=== PATIENT | female | born 1980 | race Hispanic/Latino ===

== ENCOUNTER → 2025-04-22 | Outpatient (CLI) | payer MEDICAID ==
[~2025-04-22] MED LIST: PANT40TA PO
--- NOTE | 2025-04-24 23:24 | HMCIMG ---
EXAM: Nuclear Medicine Gastric Emptying Scan. INDICATION: Abdominal pain, nausea, vomiting. REFERENCE EXAMINATION: None. TECHNIQUE: 1.5 mCi of Tc99m sulfur colloid with 02 scrambled eggs. FINDINGS: Transit of radiopharmaceutical is seen from the stomach into the small bowel. 50% gastric emptying not achieved during the period of study. IMPRESSION: Scintigraphic findings suggest gastroparesis. /[place]
== END | disposition home or self-care (01) ==
LOC: RAH 13:50
PROVIDERS: ATTEND Internal Medicine Gastroenterology
DX: R11.0 Nausea (principal)
CPT/HCPCS: 78264; A9541

== ENCOUNTER 2025-04-25 13:22 | Emergency (ER) | payer MEDICAID ==
[~2025-04-25] VITALS: Ht 154.9 cm; Wt 81.2 kg
--- NOTE | 2025-04-25 13:32 | ERN ---
ED Note History of Present Illness Stated Complaint: UPPER ABD PAIN Chief Complaint: Abdominal Pain Time Seen by MD: 13:27 Dictation: PATIENT IS A 44-YEAR-OLD FEMALE COMING IN TODAY WITH A EPIGASTRIC PAIN SHE HAS HAD FOR MORE THAN A MONTH WITH THE ABDOMINAL BLOATING. SHE STATES HE HAS HAD NAUSEA WITHOUT VOMITING. SHE STATES SHE HAS RECENTLY HAD A GASTRIC EMPTYING STUDY BY NUCLEAR MEDICINE ON 04/22 IN HIS PENDING THE RESULTS. THIS THIS WAS SCHEDULED BY [facility]. SHE IS A PATIENT OF DR. VIKA OLIVAREZ. SHE STATES SHE HAD A HAD AN ENDOSCOPY THREE WEEKS AGO BY DR. OLIVAREZ IN HIS PENDING RESULTS OF THAT. STATES SHE HAS HAD MULTIPLE ENDOSCOPIES IN THE PAST DUE TO EPIGASTRIC PAIN NAUSEA Allergies: Coded Allergies: No Known Allergies (Unverified Allergy, Unknown, 04/25/25) Past Medical History Past Medical History: Fibromyalgia, GERD Additional Past Medical Hx: GASTRITIS, ESOPHAGEAL PROBLEMS Surgical History: Cholecystectomy, LMP: Mar 30, 2023 RN Note Reviewed/Agreed w/PFSH: Yes Review of System Dictation CONSTITUTIONAL: NEGATIVE EXCEPT FOR HPI HEAD/FACE: NEGATIVE EXCEPT FOR HPI EENT: NEGATIVE EXCEPT FOR HPI RESPIRATORY: NEGATIVE EXCEPT FOR HPI GASTROINTESTINAL/ABDOMINAL: NEGATIVE EXCEPT FOR HPI CHRONIC EPIGASTRIC PAIN WITH NAUSEA/BLOATING GENITOURINARY: NEGATIVE EXCEPT FOR HPI MUSCULOSKELETAL: NEGATIVE EXCEPT FOR HPI INTEGUMENTARY: NEGATIVE EXCEPT FOR HPI NEUROLOGICAL/PSYCH: NEGATIVE EXCEPT FOR HPI HEMATOLOGIC/LYMPHATIC: NEGATIVE EXCEPT FOR HPI ALL SYSTEMS NEGATIVE, EXCEPT NOTED ABOVE. 13 POINT REVIEW OF SYSTEMS ASSESSED AND ALL NEGATIVE EXCEPT FOR ABOVE. Initial Vital Sign VS Vital Signs Date Time Temp Pulse Resp B/P (MAP) Pulse Ox O2 Delivery O2 Flow Rate FiO2 04/25/25 13:23 98.4 90 16 158/90 99 Room Air 0 04/25/25 16:13 21 Physical Exam Dictation VITAL SIGNS REVIEWED GENERAL APPEARANCE: ALERT, ORIENTED X 3, MODERATE ACUTE DISTRESS, WELL DEVELOPED, NOURISHED. OBESE HEAD AND FACE: NON-TRAUMATIC. EYES: PERRL, PINK CONJUNCTIVAS, EYELID NO TRAUMA, ANTERIOR CHAMBER WITH ARCUS SENILIS. EARS: PINNAS INTACT AND NO SIGNS OF TRAUMA OR ERYTHEMA EAR CANALS CLEAR AND NO DISCHARGE TM NO ERYTHEMA NOSE: NO DISCHARGE, NO BLEEDING. OROPHARYNX: MOUTH NORMAL, TONGUE PINK, PHARYNX CLEAR,NO ERYTHEMA, TONSILS NO EXUDATES, NO ABSCESSES NOTED, MUCOUS MEMBRANE MOIST NECK: SUPPLE, NON-TENDER, NO THYROMEGALY, NO MASSES, NO JVD, NO BRUITS BREAST:DEFERRED CHEST:NO TENDERNESS, NO CREPITUS, NO PARADOXICAL MOVEMENT, NO RETRACTIONS LUNGS:CLEAR, WELL-VENTILATED, SYMMETRIC, NO RALES, NO WHEEZING, NO RHONCHI, NO STRIDOR, GOOD BREATH SOUNDS BILATERALLY HEART: REGULAR RATE, REGULAR RHYTHM, NO MURMUR, NO GALLOPS VASCULAR: NO PERIPHERAL EDEMA, ABDOMEN: SOFT, POSITIVE BOWEL SOUNDS, NONDISTENDED, NO GUARDING, MILD EPIGASTRIC TENDERNESS WITH PALPATION NO REBOUND, NO MASSES NO HEPATOMEGALY, NO SPLENOMEGALY, NO BARRIOS'S SIGN, NO HERNIAS. RECTAL: DEFERRED GENITAL: DEFERRED NEUROLOGICAL: NORMAL SPEECH, MOTOR FUNCTION INTACT, SENSORY FUNCTION INTACT MUSCULOSKELETAL: NECK NONTENDER, FULL RANGE OF MOTION, BACK NONTENDER, FULL RANGE OF MOTION, EXTREMITIES: NONTENDER, FULL RANGE OF MOTION SKIN: COLOR PINK, DRY, NO TURGOR, NO RASH, NO LACERATIONS, NO ABRASIONS, NO CONTUSIONS. LYMPHATIC: DEFERRED Results (Laboratory/Radiology) Laboratory/Radiology Laboratory Tests Test 04/25/25 13:36 04/25/25 14:45 White Blood Count 8.2 K/uL (4.8-10.8) Red Blood Count 4.82 MIL/uL (4.00-5.50) Hemoglobin 14.4 g/dL (12.0-16.0) Hematocrit 42.2 % (36-48) Mean Corpuscular Volume 87.6 fL (79-99) Mean Corpuscular Hemoglobin 29.9 pg (27.0-33.0) Mean Corpuscular Hemoglobin Concent 34.1 g/dL (32.0-36.0) Red Cell Distribution Width 11.9 % (11.0-15.5) Platelet Count 300 K/uL (130-400) Mean Platelet Volume 8.9 fL (7.5-10.5) Immature Granulocyte % (Auto) 0.1 % (0-1) Neutrophils (%) (Auto) 60.4 % (40.0-77.0) Lymphocytes (%) (Auto) 31.1 % (21.0-51.0) Monocytes (%) (Auto) 6.7 % (3.0-13.0) Eosinophils (%) (Auto) 1.2 % (0.0-8.0) Basophils (%) (Auto) 0.5 % (0.0-5.0) Neutrophils # (Auto) 5.0 K/uL (1.8-7.7) Lymphocytes # (Auto) 2.6 K/uL (1.0-4.8) Monocytes # (Auto) 0.6 K/uL (0.1-1.0) Eosinophils # (Auto) 0.10 K/uL (0.00-0.70) Basophils # (Auto) 0.04 K/uL (0.00-0.20) Absolute Immature Granulocyte (auto 0.01 K/uL (0-1) Nucleated Red Blood Cells 0.0 % (0.0-0.19) Sodium Level 136 mmol/L (136-145) Potassium Level 3.9 mmol/L (3.5-5.1) Chloride Level 101 mmol/L (101-111) Carbon Dioxide Level 32 mmol/L (21-32) Blood Urea Nitrogen 14 mg/dL (7-18) Creatinine 0.7 mg/dL (0.5-1.0) Glomerular Filtration Rate Calc 110 mL/min (>90) Random Glucose 99 mg/dL (70-105) Total Calcium 9.0 mg/dL (8.5-10.1) Lipase 31 U/L (16-77) Urine Color YELLOW (YELLOW) Urine Appearance CLOUDY (CLEAR) H Urine pH 5.5 (5.0-8.0) Urine Specific [place] 1.027 (1.001-1.031) Urine Protein NEGATIVE mg/dL (NEGATIVE) Urine Glucose (UA) NEGATIVE mg/dL (NEGATIVE) Urine Ketones NEGATIVE mg/dL (NEGATIVE) Urine Occult Blood NEGATIVE (NEGATIVE) Urine Nitrate NEGATIVE (NEGATIVE) Urine Bilirubin NEGATIVE mg/dL (NEGATIVE) Urine Urobilinogen 0.2 mg/dL (0.2-1.0) Urine Leukocyte Esterase NEGATIVE Akbar/uL Urine RBC 2-5 /HPF (0-1) H Urine WBC 2-5 /HPF (0-1) H Urine Squamous Epithelial Cells FEW /HPF (0-2) Urine Bacteria RARE /HPF (None Seen) Urine HCG, Qualitative NEGATIVE (NEGATIVE) 1735/ CLINICAL HISTORY: PERIUMBILICAL AND LEFT LOWER QUADRANT PAIN TENDERNESS TECHNIQUE: Axial computed tomography images of the abdomen and pelvis with intravenous contrast. CT scan performed according to ALARA. Automated exposure control used during exam. CONTRAST: with intravenous contrast. COMPARISON: None provided. FINDINGS: Lung bases are clear. Hepatomegaly and hepatic steatosis. The gallbladder is surgically absent. No abnormality appreciated within either adrenal gland, either kidney, spleen, or pancreas. Bowel loops are normal in caliber without evidence of obstruction, ileus, or obvious bowel wall thickening. Abundant colonic fecal matter may reflect a component of mild constipation. The appendix is normal. No abnormality within the unopacified bladder. IUD present within the uterus. There is no ascites or lymphadenopathy. Opacified abdominal pelvic vessels are patent. The visualized thoracic aorta is distended with fluid with abrupt narrowing at the gastroesophageal junction. Findings may reflect achalasia, recommend an esophagram or direct visualization (EGD) for further evaluation. IMPRESSION: 1. No acute intraabdominal or pelvic pathology. 2. Distended thoracic aorta with abrupt narrowing at the gastroesophageal junction, possibly reflecting achalasia. Recommend an esophagram or direct visualization (EGD) for further evaluation. /[place] Labs Reviewed?: Yes ED Course ED Course Orders Procedure Category Date Status Time Cbc With Differential LAB 04/25/25 Complete 13:28 ,Urine Test LAB 04/25/25 Complete 13:28 Urinalysis Profile LAB 04/25/25 Complete 13:28 0.9%Nacl 1000ml (Ns PHA 04/25/25 Complete 1000ml) 13:30 Morphine 2mg Syg PHA 04/25/25 Complete (Morphine 2mg Syg) 13:30 Ondansetron 4mg Inj PHA 04/25/25 Complete (Zofran 4mg Inj) 13:30 Famotidine 20mg Vial PHA 04/25/25 Complete (Pepcid 20mg Vial) 13:30 Lipase LAB 04/25/25 Complete 13:28 Basic Metabolic Panel LAB 04/25/25 Complete 13:28 Ct Abdomen/Pelvis CT 04/25/25 Resulted W/Contrast 17:03 Lidocaine Hcl 2% PHA 04/25/25 Complete Viscous (Lidocaine Hcl 18:00 Mag/Alum/Simeth 30ml PHA 04/25/25 Complete (Maalox Plus 30ml) 18:00 Dicyclomine Hcl PHA 04/25/25 Complete (Bentyl 10mg/5ml 18:00 Iohexol (Omnipaque) PHA 04/25/25 Complete 17:50 Current Medications Medications (Trade) Dose Ordered Sig/Annita Route PRN Reason Start Time Stop Time Status Last Admin Dose Admin Al Hydroxide/Mg Hydroxide (MAALox PLUS 30ML) 30 ml ONCE ONCE PO 04/25/25 18:00 04/25/25 18:01 DC 04/25/25 18:14 Dicyclomine HCl (Bentyl 10mg/5ml Syrup) 10 mg ONCE ONCE PO 04/25/25 18:00 04/25/25 18:01 DC 04/25/25 18:14 Famotidine (Pepcid 20mg Vial) 20 mg ONCE ONCE IV 04/25/25 13:30 04/25/25 13:31 DC 04/25/25 15:12 Iohexol (Omnipaque) 75 ml STK-MED ONCE IV 04/25/25 17:50 04/25/25 17:50 DC Lidocaine HCl (Lidocaine HCl 2% Viscous) 10 ml ONCE ONCE PO 04/25/25 18:00 04/25/25 18:01 DC 04/25/25 18:14 Morphine Sulfate (morPHINE 2MG SYG) 2 mg ONCE ONCE IVP 04/25/25 13:30 04/25/25 13:31 DC 04/25/25 15:12 Ondansetron HCl (zoFRAN 4MG INJ) 4 mg ONCE ONCE IVP 04/25/25 13:30 04/25/25 13:31 DC 04/25/25 15:12 Sodium Chloride 1,000 ml @ 0 mls/hr ONCE ONCE IV 04/25/25 13:30 04/25/25 13:31 DC 04/25/25 15:12 Vital Signs Date Time Temp Pulse Resp B/P (MAP) Pulse Ox O2 Delivery O2 Flow Rate FiO2 04/25/25 18:33 65 18 164/91 98 Room Air* 0 21 04/25/25 16:13 66 15 148/86 96 Room Air* 0 21 04/25/25 13:23 98.4 90 16 158/90 99 Room Air 0 1330/REVIEWED GASTRIC EMPTYING STUDY PERFORMED ON 04/22. REPORT DEMONSTRATES PROBABLE GASTROPARESIS 1705/SPOKE WITH DR. VIKA OLIVAREZ SOUND RECORDIST. HE DID NOT HAVE HIS RECORDS IN FRONT OF HIM. I REVIEWED THE LABS WITH HIM AND PATIENT'S HISTORY. HE SAID THE DISCHARGE PATIENT HOME WITH PROTONIX 40 MG B.I.D. AND A LIQUID DIET TO INCLUDE ENSURE UNTIL PATIENT TO SEE HIM 1ST THING IN THE MORNING IN HIS OFFICE AT [facility] IN [place]. THIS WAS DISCUSSED WITH PATIENT.1939/ 1938/SPOKE WITH PATIENT AT LENGTH REGARDING CLINICAL FINDINGS. SHE WILL BE PRESCRIBED PROTONIX 40 MG B.I.D. DIRECTED BY SOUND RECORDIST REFERRED TO HIM IN THE MORNING Medical Decision Making MDM MDM: DIFFERENTIAL DIAGNOSIS: ACHALASIA VERSUS GASTRITIS VERSUS GASTROENTERITIS VERSUS/PANCREATITIS/ELECTROLYTE IMBALANCE/DEHYDRATION/DIVERTICULITIS RATIONALE: TESTS CONSIDERED AND ORDERED SECONDARY TO SHARED DECISION MAKING INCLUDE: PREVIOUS OUTSIDE RECORDS REVIEWED: OLD ER VISITS. RISK OF COMPLICATION AND/OR MORBIDITY OR MORTALITY OF PATIENT MANAGEMENT: NONE MEDICATIONS-PER MEDICATION RECONCILIATION NEED FOR HOSPITALIZATION: PATIENT DOES NOT MEET CRITERIA FOR HOSPITALIZATION. NONE THERE ARE NO SOCIAL CONCERNS WITH THIS PATIENT. PRESCRIPTION DRUG MANAGEMENT PROTONIX PRESCRIPTIONS WILL INCLUDE SYMPTOMATIC CARE PATIENT'S PRIOR EXTERNAL MEDICAL RECORDS FROM OTHER ER VISITS WERE REVIEWED BY ME INDICATED. PRIOR TESTING AND RESULTS FROM PREVIOUS VISITS WERE REVIEWED. PRIOR TESTS WERE TAKEN INTO ACCOUNT WITH MEDICAL DECISION MAKING AND RESOURCE UTILIZATION, INDEPENDENT HISTORIAN/HISTORIANS WERE USED TO OBTAIN COMPLETE MEDICAL HISTORY. I INDEPENDENTLY INTERPRETED THE TEST THAT WERE PERFORMED, RESULTS WERE REVIEWED BY ME AND CONSIDERED FINDINGS ON RADIOLOGY IF ORDERED. MEDICAL MANAGEMENT AND EXAMINATION INTERPRETATION DISCUSSIONS WERE HAD BY ME WITH OTHER QUALIFIED HEALTHCARE PROFESSIONALS INDICATED FOR THE PATIENT'S CARE. DX & DISP Disposition: Discharge Departure Impression: Primary Impression: Chronic epigastric pain Additional Impression: Achalasia of digestive tract Condition: Stable Scripts Pantoprazole Sodium (Protonix) 40 Mg Tablet. 40 MG PO BIDAC, #40 TAB Prov: SAMMY DISLA [facility] 04/25/25 Additional Instructions: FOLLOW-UP WITH PRIMARY CARE PROVIDER IN 1 TO 2 DAYS. TAKE MEDICATIONS DIRECTED HERE IN THE EMERGENCY ROOM. OKAY TO CONTINUE HOME MEDICATIONS UNLESS OTHERWISE DISCUSSED DURING YOUR VISIT IN THE EMERGENCY ROOM TODAY. RETURN TO YOUR NEAREST EMERGENCY ROOM IF SYMPTOMS WORSEN OR IF THERE IS NO IMPROVEMENT. CALL 911 IF YOU NEED IMMEDIATE ASSISTANCE. TAKE TYLENOL OR MOTRIN [id number] NEEDED AND IF NO CONTRAINDICATIONS ARE PRESENT. INCREASE ORAL HYDRATION. A WOUND CULTURE OR URINE CULTURE WAS ORDERED HERE IN THE EMERGENCY ROOM DEPARTMENT PLEASE FOLLOW-UP WITH PRIMARY CARE PROVIDER AND ADVISE THEM TO GET REPEAT PORTS FROM OUR FACILITY. IF YOU HAD ANY CELIA WRAP/SPLINTS THAT WERE APPLIED HERE, PLEASE DO NOT REMOVE THEM UNTIL YOU SEE YOUR PRIMARY CARE OR SPECIALTY. TAKE PROTONIX DIRECTED TWICE A DAY BEFORE MEALS. GO TOMORROW [facility] HAS A WALK-IN FOR DR. VIKA OLIVAREZ. TAKE YOUR DISCHARGE PAPERWORK WITH THE Referrals: LAURA TRIANA MD (PCP) VIKA OLIVAREZ MD Time of Disposition: 19:44 I have reviewed the case, and I agree with, Diagnosis and Plan SAMMY DISLA POLYSOMNOGRAPHIC TECHNOLOGIST Apr 25, 2025 13:32
[2025-04-25 13:44] LABS: IMMATURE GRANULOCYTE ABSOLUTE 0.01 K/uL (0-1); NUCLEATED RED BLOOD CELLS 0.0 % (0.0-0.19); PLATELET COUNT (AUTO) 300 K/uL (130-400); RED BLOOD CELL COUNT(AUTO) 4.82 MIL/uL (4.00-5.50); RED CELL DISTRIBUTION WIDTH 11.9 % (11.0-15.5); WHITE BLOOD COUNT (AUTO) 8.2 K/uL (4.8-10.8)
[2025-04-25 13:51] LABS: CREATININE 0.7 mg/dL (0.5-1.0); GLOMERULAR FILTR. RATE CALC 110.0 mL/min (>90); GLUCOSE,RANDOM 99.0 mg/dL (70-105); SODIUM SERUM 136.0 mmol/L (136-145); UREA NITROGEN, BLOOD 14.0 mg/dL (7-18)
--- NOTE | 2025-04-25 14:42 | NUR ---
PT JUST NOW ASSIGNED/PLACED IN ED HALLWAY B1
--- NOTE | 2025-04-25 15:04 | NUR ---
REPORT ENDORSED TO NAILA LO
[2025-04-25] MEDS: FAMOTIDINE 20MG VIAL IV ONE (15:12)
[2025-04-25] MEDS: 0.9%NACL 1000ML 1,000 ML IV ONE (15:12)
[2025-04-25 15:14] LABS: HCG,QUALITATIVE URINE NEGATIVE (NEGATIVE)
[2025-04-25 15:16] LABS: APPEARANCE,URINE CLOUDY (CLEAR); GLUCOSE, URINE (UA) NEGATIVE (NEGATIVE); LEUKOCYTE ESTERASE ,URINE NEGATIVE Leu/uL (NEGATIVE); NITRATE,URINE NEGATIVE (NEGATIVE); OCCULT BLOOD,URINE NEGATIVE (NEGATIVE)
[2025-04-25 15:17] LABS: ADD UA MICROSCOPIC YES
[2025-04-25 15:19] LABS: SQUAMOUS EPITHELIAL CELL,UR FEW /HPF (0-2)
[2025-04-25] MEDS ORDERED: IOHEXOL-350 75 ML VIAL IV ONE (17:50)
[2025-04-25] MEDS: LIDOCAINE HCL 2% VISCOUS 15 ML UDCUP PO ONE (18:14)
[2025-04-25] MEDS: DICYCLOMINE HCL 10 MG/5 ML ML PO ONE (18:14)
[2025-04-25] MEDS: MAG/ALUM/SIMETH 30 ML UDCUP PO ONE (18:14)
--- NOTE | 2025-04-25 19:28 | HMCIMG ---
EXAM: CT Abdomen and Pelvis with IV contrast CLINICAL HISTORY: PERIUMBILICAL AND LEFT LOWER QUADRANT PAIN TENDERNESS TECHNIQUE: Axial computed tomography images of the abdomen and pelvis with intravenous contrast. CT scan performed according to ALARA. Automated exposure control used during exam. CONTRAST: with intravenous contrast. COMPARISON: None provided. FINDINGS: Lung bases are clear. Hepatomegaly and hepatic steatosis. The gallbladder is surgically absent. No abnormality appreciated within either adrenal gland, either kidney, spleen, or pancreas. Bowel loops are normal in caliber without evidence of obstruction, ileus, or obvious bowel wall thickening. Abundant colonic fecal matter may reflect a component of mild constipation. The appendix is normal. No abnormality within the unopacified bladder. IUD present within the uterus. There is no ascites or lymphadenopathy. Opacified abdominal pelvic vessels are patent. The visualized thoracic aorta is distended with fluid with abrupt narrowing at the gastroesophageal junction. Findings may reflect achalasia, recommend an esophagram or direct visualization (EGD) for further evaluation. IMPRESSION: 1. No acute intraabdominal or pelvic pathology. 2. Distended thoracic aorta with abrupt narrowing at the gastroesophageal junction, possibly reflecting achalasia. Recommend an esophagram or direct visualization (EGD) for further evaluation. /[place]
[2025-04-25] MEDS ORDERED: PANT40TA PO (19:46)
[2025-04-25 19:51] VITALS: BP 164/91; PULSE 65; RESP 18; TEMP 98.4; O2SAT 99
== END 2025-04-25 20:00 | disposition home or self-care (01) ==
LOC: EDH 13:22
DX: K22.0 Achalasia of cardia (principal); G89.29 Other chronic pain; R10.13 Epigastric pain; M79.7 Fibromyalgia; Z87.19 Personal history of other diseases of the digestive system; Z90.49 Acquired absence of other specified parts of digestive tract
CPT/HCPCS: 99285; 74177; 96374; 96361; 96375; 80048; 83690; 85025; 81001; 81025; 36415; J1308; J2270; J7030; J2405; Q9967

== ENCOUNTER 2025-05-01 07:16 | Observation (INO) | payer MEDICAID ==
[~2025-05-01] VITALS: Ht 154.9 cm; Wt 81.2 kg
--- NOTE | 2025-05-01 07:25 | ERN ---
General Chief Complaint: Abdominal Pain Stated Complaint: ABD PAIN Time Seen by MD: 07:17 History of Present Illness Initial Comments 44-year-old female history of gastroparesis, achalasia he is here for evaluation of abdominal pain. She was recently diagnosed with a gastroenteritis however is presenting back again for he had episodes of diarrhea. No fever no cough no shortness a breath. No chest pain. Allergies: Coded Allergies: No Known Allergies (Unverified Allergy, Unknown, 04/25/25) Home Meds Active Scripts Pantoprazole Sodium (Protonix) 40 Mg Tablet.dr, 40 MG PO BIDAC, #40 TAB Prov:SAMMY DISLA [employer] MECH[employer]IC 04/25/25 Past Medical History Past Medical History: Fibromyalgia, GERD Medical History Other: GASTRITIS, ESOPHAGEAL PROBLEMS Past Surgical History: Cholecystectomy, Gastrointestinal/Abdominal: (+) vomiting, (+) diarrhea, (+) abdominal pain, (+) abdominal distention Review of Systems: was completed, & the rest were negative. Physical Exam Physical Exam Dictation GENERAL APPEARANCE NAD, activity normal for age, well developed/ well nourished, no cyanosis, pallor, or diaphoresis. EYES lids/conjunctiva normal. EARS/NOSE/THROAT Mucous membranes moist, nares normal, lips/teeth normal uvula midline without oral pharyngeal erythema, exudate or swelling TMs normal bilaterally. No lymphangitis/lymphedema. HEAD/NECK normocephalic atraumatic, no facial trauma, neck is supple. RESPIRATORY respiratory effort normal, speaks in full sentences, no tripod position, no accessory muscle use. Lungs clear to auscultation without rhonchi, wheezes, rales CARDIAC Regular rate and rhythm, no edema. ABDOMINAL Soft, generalized abdominal tenderness.. No evidence of fluid wave. No pulsatile masses on exam, rebound tenderness, Santos sign or pain over Mcburney's point. MUSCLES/EXTREMITIES No abnormal range of motion, no swelling. SKIN Warm, pink and dry. No rashes, dermatoses, petechiae or lesions. NEUROLOGICAL Speech is clear and appropriate. Normal level of consciousness. Gait and coordination are normal. 5/5 strength in all extremities. PSYCH Normal mood and affect. Judgement/competence is appropriate Results Laboratory and Microbiology Lab and Micro Result EKG/XRAY/US/CT/MRI CT Scan Comment PATIENT: CANDELARIO KERN MR#: [id number] : 1980 SEX: F AGE: 44 LOCATION: [facility] ORDER 0 STATUS: [facility] REPORT#: [id number] SERVICE 9 REASON: abd pain, hx of gastroparesis ORDERING PHYSICIAN: EDDIE VEGA MD PROCEDURE: ABD PEL W - CT ABDOMEN/PELVIS W/CONTRAST EXAM: CT Abdomen and Pelvis with IV contrast CLINICAL HISTORY: abd pain, hx of gastroparesis TECHNIQUE: Axial computed tomography images of the abdomen and pelvis with intravenous contrast. CONTRAST: with intravenous contrast. COMPARISON: Study dated 04/25/25. FINDINGS: LUNG BASES: The lung bases appear clear. No pleural effusions are seen. LIVER: The liver is enlarged in size. The right hepatic lobe measures up to 17.7 cm. GALLBLADDER AND BILE DUCTS: Post-cholecystectomy status. PANCREAS: Unremarkable. SPLEEN: Unremarkable. ADRENAL GLANDS: Unremarkable. KIDNEYS, URETERS, AND BLADDER: The kidneys appear within normal limits. There is no hydronephrosis or hydroureter. No urinary calculi are seen. STOMACH AND BOWEL: Unremarkable appearance of the stomach and bowel. No evidence of bowel obstruction. No evidence suggesting enteritis or colitis. The visualized distal esophagus is distended (diameter 3.2 cm) with fluid with abrupt narrowing at the gastroesophageal junction. Findings may reflect achalasia; recommend an esophagram or direct visualization (EGD) for further evaluation. (No change compared to the previous study). APPENDIX: No evidence of acute appendicitis on CT examination. PERITONEUM: No free fluid. No free air. LYMPH NODES: No lymphadenopathy is evident. REPRODUCTIVE: Intrauterine device in place. VASCULATURE: No evidence of abdominal aortic aneurysm. BONES: No aggressive appearing osseous lesion. No acute osseous pathology evident. IMPRESSION: 1. Distended distal esophagus (3.2 cm diameter) with abrupt narrowing at gastroesophageal junction, possibly reflecting achalasia. Recommend esophagram or EGD for further evaluation. 2. Hepatomegaly with right hepatic lobe measuring up to 17.7 cm. 3. No acute findings. /[facility] MDM: DIFFERENTIAL DIAGNOSIS: Achalasia, abdominal pain, conversion disorder RATIONALE: TESTS CONSIDERED AND ORDERED SECONDARY TO SHARED DECISION MAKING INCLUDE: PREVIOUS OUTSIDE RECORDS REVIEWED: OLD ER VISITS. RISK OF COMPLICATION AND/OR MORBIDITY OR MORTALITY OF PATIENT MANAGEMENT: NONE MEDICATIONS-PER MEDICATION RECONCILIATION NEED FOR HOSPITALIZATION: PATIENT DOES NOT MEET CRITERIA FOR HOSPITALIZATION. NEED FOR EMERGENCY MAJOR/MINOR SURGERY: NO THERE ARE NO SOCIAL CONCERNS WITH THIS PATIENT. PRESCRIPTION DRUG MANAGEMENT PRESCRIPTIONS WILL INCLUDE SYMPTOMATIC CARE PATIENT'S PRIOR EXTERNAL MEDICAL RECORDS FROM OTHER ER VISITS WERE REVIEWED BY ME INDICATED. PRIOR TESTING AND RESULTS FROM PREVIOUS VISITS WERE REVIEWED. PRIOR TESTS WERE TAKEN INTO ACCOUNT WITH MEDICAL DECISION MAKING AND RESOURCE UTILIZATION, INDEPENDENT HISTORIAN/HISTORIANS WERE USED TO OBTAIN COMPLETE MEDICAL HISTORY. I INDEPENDENTLY INTERPRETED THE TEST THAT WERE PERFORMED, RESULTS WERE REVIEWED BY ME AND CONSIDERED FINDINGS ON RADIOLOGY IF ORDERED. MEDICAL MANAGEMENT AND EXAMINATION INTERPRETATION DISCUSSIONS WERE HAD BY ME WITH OTHER QUALIFIED HEALTHCARE PROFESSIONALS INDICATED FOR THE PATIENT'S CARE. ED Course Vital Signs Date Time Temp Pulse Resp B/P (MAP) Pulse Ox O2 Delivery O2 Flow Rate FiO2 05/01/25 07:17 97.7 87 16 97 0 DX & DISP Disposition: Inpatient Departure Impression: Primary Impression: Achalasia of digestive tract Additional Impression: Intractable abdominal pain Condition: Stable Referrals: JC WEST MD (PCP) EDDIE VEGA MD May 01, 2025 07:25
[2025-05-01 07:35] LABS: IMMATURE GRANULOCYTE ABSOLUTE 0.03 K/uL (0-1); NUCLEATED RED BLOOD CELLS 0.0 % (0.0-0.19); PLATELET COUNT (AUTO) 300 K/uL (130-400); RED BLOOD CELL COUNT(AUTO) 4.89 MIL/uL (4.00-5.50); RED CELL DISTRIBUTION WIDTH 12.0 % (11.0-15.5); WHITE BLOOD COUNT (AUTO) 7.7 K/uL (4.8-10.8)
[2025-05-01 07:59] LABS: ASPARTATE AMINOTRANSFERASE 31.0 U/L (10-37); CREATININE 0.6 mg/dL (0.5-1.0); GLOMERULAR FILTR. RATE CALC 114.0 mL/min (>90); GLUCOSE,RANDOM 95.0 mg/dL (70-105); SODIUM SERUM 136.0 mmol/L (136-145); TOTAL PROTEIN, SERUM 7.6 g/dL (6.0-8.3); UREA NITROGEN, BLOOD 11.0 mg/dL (7-18)
[2025-05-01] MEDS: MAG/ALUM/SIMETH 30 ML UDCUP PO ONE (08:21)
[2025-05-01] MEDS: DICYCLOMINE HCL 20 MG TAB PO ONE (08:21)
[2025-05-01] MEDS: 0.9%NACL 1000ML 1,000 ML IV SCH (08:21)
[2025-05-01 09:41] LABS: APPEARANCE,URINE CLOUDY (CLEAR); GLUCOSE, URINE (UA) NEGATIVE (NEGATIVE); LEUKOCYTE ESTERASE ,URINE NEGATIVE Leu/uL (NEGATIVE); NITRATE,URINE NEGATIVE (NEGATIVE); OCCULT BLOOD,URINE NEGATIVE (NEGATIVE)
[2025-05-01 09:51] LABS: ADD UA MICROSCOPIC YES
[2025-05-01 09:56] LABS: SQUAMOUS EPITHELIAL CELL,UR MANY /HPF (0-2)
[2025-05-01] MEDS ORDERED: IOHEXOL-350 75 ML VIAL IV ONE (10:13)
--- NOTE | 2025-05-01 11:32 | HMCIMG ---
EXAM: CT Abdomen and Pelvis with IV contrast CLINICAL HISTORY: abd pain, hx of gastroparesis TECHNIQUE: Axial computed tomography images of the abdomen and pelvis with intravenous contrast. CONTRAST: with intravenous contrast. COMPARISON: Study dated 04/25/25. FINDINGS: LUNG BASES: The lung bases appear clear. No pleural effusions are seen. LIVER: The liver is enlarged in size. The right hepatic lobe measures up to 17.7 cm. GALLBLADDER AND BILE DUCTS: Post-cholecystectomy status. PANCREAS: Unremarkable. SPLEEN: Unremarkable. ADRENAL GLANDS: Unremarkable. KIDNEYS, URETERS, AND BLADDER: The kidneys appear within normal limits. There is no hydronephrosis or hydroureter. No urinary calculi are seen. STOMACH AND BOWEL: Unremarkable appearance of the stomach and bowel. No evidence of bowel obstruction. No evidence suggesting enteritis or colitis. The visualized distal esophagus is distended (diameter 3.2 cm) with fluid with abrupt narrowing at the gastroesophageal junction. Findings may reflect achalasia; recommend an esophagram or direct visualization (EGD) for further evaluation. (No change compared to the previous study). APPENDIX: No evidence of acute appendicitis on CT examination. PERITONEUM: No free fluid. No free air. LYMPH NODES: No lymphadenopathy is evident. REPRODUCTIVE: Intrauterine device in place. VASCULATURE: No evidence of abdominal aortic aneurysm. BONES: No aggressive appearing osseous lesion. No acute osseous pathology evident. IMPRESSION: 1. Distended distal esophagus (3.2 cm diameter) with abrupt narrowing at gastroesophageal junction, possibly reflecting achalasia. Recommend esophagram or EGD for further evaluation. 2. Hepatomegaly with right hepatic lobe measuring up to 17.7 cm. 3. No acute findings. /[place]
[2025-05-01] MEDS ORDERED: COMPOUND IV MISC 1 EACH IVSOLN MISC PRN (12:30)
[2025-05-01] MEDS ORDERED: COMPOUND IV REFRIGERATED 1 EACH IVSOLN MISC PRN (12:30)
--- NOTE | 2025-05-01 12:45 | HP ---
[facility] HISTORY AND PHYSICAL Date of Service: May 01, 2025 Time of Service: 12:38 HISTORY OF PRESENT ILLNESS: Date of service: 05/01/2025, patient was seen in ER room 14 This is a 44-year-old female with underlying history of recent diagnosis of achalasia, recent diagnosis of gastroparesis on gastric emptying study from 12/15/2024, obesity, fibromyalgia, anxiety, GERD/gastritis who has been followed by GI as outpatient who presented to the ER for further evaluation of poor oral intake with multiple episodes of nausea, vomiting, abdominal pain and recent diarrhea as well. Symptoms have been ongoing for the past 8-10 days. Patient was recently seen by GI and she states that she was diagnosed with achalasia. She presented to ER about a week ago with similar complaint and was discharged on symptomatic treatment. Patient continues to do poorly and reports having significant lower quadrant abdominal pain. She has vomited multiple times yesterday and she reports having regurgitation of food with acid reflux. She has been unable to keep her home medications down and reports having vomiting. She states that she is followed by Dr. Hill who had recommended repeat endoscopy for further evaluation of achalasia. She reports that Achalasia was initially diagnosed about six years ago and reports having had previous balloon dilation. She did not keep regular GI follow up until recently. Reports having had three endoscopies previously as well. Diarrhea started about two days ago and she has been having about 10-12 episodes of loose stool. She denies any blood in the stool. Denies having diarrhea since coming to the ER. Patient underwent CT of the abdomen pelvis which showed findings of distended distal esophagus with upper of narrowing at the GE junction possibly reflecting he has achalasia with hepatomegaly. Patient will be admitted for further treatment and management. She will be started on IV antibiotics, IV hydration. we will request GI consultation this admission for further treatment and management of achalasia. We will have Infectious Disease follow this patient along. We will see how patient progresses in the next 48-72 hours. We will ensure patient is tolerating oral intake prior to discharge. Patient states that with regards to gastroparesis, she was recently started on Reglan. She reports having previous issues with tardive dyskinesia and the does not want to take Reglan which can increase risk of tardive dyskinesia. REVIEW OF SYSTEMS CONSTITUTIONAL: Denies fevers, chills, or night sweats. No unintentional weight loss reported. NEUROLOGICAL: Denies headache, amaurosis fugax, motor weakness, sensory deficit, vertigo/spinning sensation, gait abnormalities, or tremors. ENT: No hearing loss, otalgia, otorrhea, rhinitis, rhinorrhea, hoarseness, or sore throat. CARDIOVASCULAR: Denies any exertional angina, dyspnea on exertion, orthopnea, paroxysmal nocturnal dyspnea, palpitations, life-threatening arrhythmias, claudication. PULMONARY: Denies any shortness of breath, cough, phlegm/sputum, hemoptysis, pleuritic chest pain. SLEEP: Denies morning headaches, daytime somnolence or napping. Denies difficulty falling asleep, staying asleep, waking from sleep. Denies knowledge of snoring. GASTROINTESTINAL: Episodes of nausea, vomiting, ongoing for more than a week, two days of diarrhea GENITOURINARY: Denies frequency, urgency, nocturia, hematuria or incontinence (Storage/Irritative symptoms.) Low urinary stream, straining to void, urinary intermittency or hesitancy, splitting of the voiding stream, terminal dribbling. ENDOCRINOLOGIC: Denies polyuria, polydipsia, polyphagia or heat/cold intolerances. HEMATOLOGIC: Denies thrombophilia/previous clots, or coagulopathy/bleeding disorders. ONCOLOGIC: Denies personal history of malignancy. DERMATOLOGIC: Denies rashes or pruritus. PSYCHIATRIC: Denies any suicidal or homicidal ideation. Denies hallucinations. PAST MEDICAL HISTORY: /gastritis, recent diagnosis of achalasia, recent diagnosis of gastroparesis, fibromyalgia, anxiety (reports being on cloanzepam daily), Hx of Pulmonary infection in 2016 requiring 2 month Hospitalization in [facility], patient reports being treated with anti tubercular medication for 3 months but reports diagnostic testing for TB was negative during her hospitalization PAST SURGICAL HISTORY: Previous history of multiple endoscopies including three endoscopies previously, cholecystectomy, PAST SOCIAL HISTORY: Patient has a remote smoking history, denies active smoking or alcohol consumption, denies illicit drug use FAMILY HISTORY: Family history of type 2 diabetes mellitus, hypertension, sister was recently diagnosed with vulvar cancer Allergies: No known drug allergies Home medications: reports being on tramadol, lyrica, clonazepam, does not know the dose and patient did not bring home medication list to verify dosage Coded Allergies: No Known Allergies (Unverified Allergy, Unknown, 04/25/25) PHYSICAL EXAM GENERAL APPEARANCE: The patient is awake, alert, and oriented, in no acute cardiopulmonary distress. NEUROLOGICAL: Cranial nerves II-XII grossly intact. Motor is 5/5 in bilateral upper and lower extremities proximal to distal. No sensory deficits. HEENT: Face is symmetric. Pupils are equal and reactive. Extraocular movements are intact. NECK: Supple. No JVD. No thyromegaly. No submental, submandibular, pre- /postauricular, occipital or supraclavicular lymphadenopathy. CHEST: Normal chest expansion. No Telemetry. LUNGS: Absence of any rales, rhonchi or any wheezing. CARDIOVASCULAR: Regular. S1 and S2 normal. No appreciable rubs, murmurs or gallops. ABDOMEN: Soft, nontender, and nondistended. There is no rebound, voluntary guarding, or rigidity. : Deferred. No Gibson. EXTREMITIES: Non-edematous and not cyanotic. No clubbing. Good capillary refill. SKIN: No skin breakdown. Vital Sign (Last 24 Hours) 05/01/25 08:10 Temp 98.4 Pulse 72 Resp 13 B/P (MAP) 115/94 Pulse Ox 97 O2 Delivery Room Air* O2 Flow Rate 0 FiO2 21 LABS: Laboratory: Test 05/01/25 09:25 05/01/25 07:30 Range/Units Urine Color LIGHT-YELLOW YELLOW Urine Appearance CLOUDY H CLEAR Urine pH 6.0 5.0-8.0 Urine Specific [place] 1.008 1.001-1.031 Urine Protein NEGATIVE NEGATIVE mg/dL Urine Glucose (UA) NEGATIVE NEGATIVE mg/dL Urine Ketones NEGATIVE NEGATIVE mg/dL Urine Occult Blood NEGATIVE NEGATIVE Urine Nitrate NEGATIVE NEGATIVE Urine Bilirubin NEGATIVE NEGATIVE mg/dL Urine Urobilinogen 0.2 0.2-1.0 mg/dL Urine Leukocyte Esterase NEGATIVE NEGATIVE Akbar/uL Urine RBC 0-1 0-1 /HPF Urine WBC 0-1 0-1 /HPF Urine Squamous Epithelial Cells MANY 0-2 /HPF Urine Bacteria RARE None Seen /HPF White Blood Count 7.7 4.8-10.8 K/uL Red Blood Count 4.89 4.00-5.50 MIL/uL Hemoglobin 14.5 12.0-16.0 g/dL Hematocrit 42.1 36-48 % Mean Corpuscular Volume 86.1 79-99 fL Mean Corpuscular Hemoglobin 29.7 27.0-33.0 pg Mean Corpuscular Hemoglobin Concent 34.4 32.0-36.0 g/dL Red Cell Distribution Width 12.0 11.0-15.5 % Platelet Count 300 130-400 K/uL Mean Platelet Volume 9.2 7.5-10.5 fL Immature Granulocyte % (Auto) 0.4 0-1 % Neutrophils (%) (Auto) 55.5 40.0-77.0 % Lymphocytes (%) (Auto) 35.3 21.0-51.0 % Monocytes (%) (Auto) 6.8 3.0-13.0 % Eosinophils (%) (Auto) 1.2 0.0-8.0 % Basophils (%) (Auto) 0.8 0.0-5.0 % Neutrophils # (Auto) 4.3 1.8-7.7 K/uL Lymphocytes # (Auto) 2.7 1.0-4.8 K/uL Monocytes # (Auto) 0.5 0.1-1.0 K/uL Eosinophils # (Auto) 0.09 0.00-0.70 K/uL Basophils # (Auto) 0.06 0.00-0.20 K/uL Absolute Immature Granulocyte (auto 0.03 0-1 K/uL Nucleated Red Blood Cells 0.0 0.0-0.19 % Sodium Level 136 136-145 mmol/L Potassium Level 4.1 3.5-5.1 mmol/L Chloride Level 101 101-111 mmol/L Carbon Dioxide Level 28 21-32 mmol/L Blood Urea Nitrogen 11 7-18 mg/dL Creatinine 0.6 0.5-1.0 mg/dL Glomerular Filtration Rate Calc 114 >90 mL/min Random Glucose 95 70-105 mg/dL Total Calcium 9.4 8.5-10.1 mg/dL Total Bilirubin 0.7 0.2-1.0 mg/dL Direct Bilirubin 0.2 0.0-0.3 mg/dL Aspartate Amino Transf (AST/SGOT) 31 10-37 U/L Alanine Aminotransferase (ALT/SGPT) 46 12-78 U/L Alkaline Phosphatase 69 50-136 U/L Total Protein 7.6 6.0-8.3 g/dL Albumin 3.6 3.5-5.0 g/dL Lipase 23 16-77 U/L Serum Test, Qualitative NEGATIVE NEGATIVE Current Medications Medications (Trade) Dose Ordered Sig/Annita Route PRN Reason Start Time Stop Time Status Last Admin Dose Admin Acetaminophen (TYLenol 325MG TAB) 650 mg Q6H PRN PO MILD PAIN (1-3) 05/01/25 12:30 05/31/25 12:29 Albuterol (DUOneb) 1 udvial Q6H PRN IH wheezing/ SOB 05/01/25 12:30 05/31/25 12:29 Ceftriaxone Sodium (ROCEphine 1G INJ) 1 gm Q24H IVPB 05/01/25 12:30 05/11/25 12:29 Enoxaparin Sodium (Lovenox) 40 mg DAILY SQ 05/02/25 09:00 06/01/25 08:59 Multivitamins/ Minerals 10 ml/ Folic Acid 1 mg/ Thiamine HCl 100 mg/Sodium Chloride 1,010 ml @ 80 mls/hr Q24H IV 05/01/25 12:30 05/04/25 01:08 Ondansetron HCl (zoFRAN 4MG INJ) 4 mg Q6H PRN IVP NAUSEA/VOMITING 05/01/25 12:30 05/31/25 12:29 Pantoprazole Sodium (PROTonix 40MG INJ) 40 mg Q24H IVP 05/01/25 12:30 05/31/25 12:29 Sodium Chloride 1,000 ml @ 0 mls/hr Q0M IV 05/01/25 07:30 05/31/25 07:29 05/01/25 08:21 999 MLS/HR DIAGNOSTICS / RADIOLOGY: SERVICE 0900 REASON: abd pain, hx of gastroparesis ORDERING PHYSICIAN: EDDIE VEGA MD PROCEDURE: ABD PEL W - CT ABDOMEN/PELVIS W/CONTRAST EXAM: CT Abdomen and Pelvis with IV contrast CLINICAL HISTORY: abd pain, hx of gastroparesis TECHNIQUE: Axial computed tomography images of the abdomen and pelvis with intravenous contrast. CONTRAST: with intravenous contrast. COMPARISON: Study dated 04/25/25. FINDINGS: LUNG BASES: The lung bases appear clear. No pleural effusions are seen. LIVER: The liver is enlarged in size. The right hepatic lobe measures up to 17.7 cm. GALLBLADDER AND BILE DUCTS: Post-cholecystectomy status. PANCREAS: Unremarkable. SPLEEN: Unremarkable. ADRENAL GLANDS: Unremarkable. KIDNEYS, URETERS, AND BLADDER: The kidneys appear within normal limits. There is no hydronephrosis or hydroureter. No urinary calculi are seen. STOMACH AND BOWEL: Unremarkable appearance of the stomach and bowel. No evidence of bowel obstruction. No evidence suggesting enteritis or colitis. The visualized distal esophagus is distended (diameter 3.2 cm) with fluid with abrupt narrowing at the gastroesophageal junction. Findings may reflect achalasia; recommend an esophagram or direct visualization (EGD) for further evaluation. (No change compared to the previous study). APPENDIX: No evidence of acute appendicitis on CT examination. PERITONEUM: No free fluid. No free air. LYMPH NODES: No lymphadenopathy is evident. REPRODUCTIVE: Intrauterine device in place. VASCULATURE: No evidence of abdominal aortic aneurysm. BONES: No aggressive appearing osseous lesion. No acute osseous pathology evident. IMPRESSION: 1. Distended distal esophagus (3.2 cm diameter) with abrupt narrowing at gastroesophageal junction, possibly reflecting achalasia. Recommend esophagram or EGD for further evaluation. 2. Hepatomegaly with right hepatic lobe measuring up to 17.7 cm. 3. No acute findings. /[place] DICTATED BY: TOSHIA FERRARA Jr., MD DATE: 05/01/251231 ELECTRONICALLY SIGNED BY: TOSHIA FERRARA Jr., MD DATE: 05/01/25 123 ASSESSMENT: Infectious gastroenteritis with multiple episodes of diarrhea, POA Recent diagnosis of achalasia with nausea, vomiting and regurgitation of food, POA Dehydration, POA Concern for gastroparesis, POA History of GERD, POA History of gastritis, POA Obesity, POA History of fibromyalgia, POA History of anxiety, POA Hx of chronic benzodiazepine use as outpatient with Clonazepam, POA PLAN: Patient will be admitted to medical-surgical floor Patient presenting with multiple episodes of nausea, vomiting, she has acid reflux with regurgitation of food due to severe symptoms of achalasia, she has been unable to tolerate oral intake We will start patient on IV hydration with banana bag Patient is also having diarrhea over the last two days with multiple episodes, GI PCR panel will be obtained We will start patient on IV Rocephin 1 g daily, consultation with Infectious Disease will be requested We will see how patient does later today, we will see if she can tolerate a little amount of liquid diet and slowly we will advance the diet as tolerated We will keep patient on IV Protonix 40 mg daily Consultation with dietitian will be requested We will need to have GI follow up on this patient tomorrow, ER provider spoke with Dr. Chirinos today who is not planning on any procedures for today, patient is presenting to the ER with recurrent symptoms. We will need to see what workup has been done for achalasia and gastroparesis as outpatient, we will need to entertain repeat endoscopy and further therapeutic endoscopic management of achalasia this admission, further plan of care by GI Patient is hesitant to try Reglan for gastro-paresis, patient reports having tried a medication previously which tardive dyskinesia and akathisia, she read about the adverse effects of Reglan and would not want to take the medication All labs will be repeated in the morning we will see how patient progresses in the next 48-72 hours We will keep patient on DVT prophylaxis with low-dose Lovenox c/w Clonazepam 1 mg daily prn to reduce risk of benzodiazepine withdrawals Date of service: 05/01/2025 Prognosis: Guarded Plan of care was discussed with patient at bedside, Elmo Moreno MD Advanced Care Planning: Which of the following were discussed: Hospice care: Yes __ No _X_ Therapeutic options: Yes _X_ No __ Advance directives: Yes _X_ No __ Other discussions: Discussed with who?: Patient Voluntary nature of this service was explained to the patient? Yes _x_ No __ Amount of time spent: 20 minutes ELMO MORENO MD May 01, 2025 12:45
[2025-05-01] MEDS: M.V.I. IV [ADULT] 10 ML, FOLic ACID 5 MG/ML VIAL 1 MG, THIAMINE HCL 100 MG in 0.9%NACL ... IV SCH (12:59)
[2025-05-01 13:05] VITALS: PULSE 61; RESP 18; O2SAT 99
[2025-05-01 13:14] LABS: LACTATE DEHYDROGENASE 229.0 U/L (81-234)
[2025-05-01 13:28] LABS: INR 1.0 (0.85-1.15)
--- NOTE | 2025-05-01 14:58 | NUR ---
CALLED AND GAVE REPORT TO IRIS NEGRON RN SENT WITH PATIENT
--- NOTE | 2025-05-01 15:14 | NUR ---
RECEIVED REPORT FROM TERESITA COSTA. PATIENT ARRIVED TO ROOM 120.
[2025-05-01 16:00] VITALS: O2SAT 99
[2025-05-01 19:43] VITALS: PULSE 82; RESP 18; O2SAT 98
[2025-05-01 20:00] VITALS: BP 133/89; PULSE 64; RESP 20; TEMP 97.9
[2025-05-01 20:25] VITALS: O2SAT 98
[2025-05-02] VITALS (7 sets, daily range): BP systolic 119–149; BP diastolic 65–90; PULSE 60–80; RESP 16–20; TEMP 97.8–98.1; O2SAT 99–100
[2025-05-02 04:52] LABS: IMMATURE GRANULOCYTE ABSOLUTE 0.02 K/uL (0-1); NUCLEATED RED BLOOD CELLS 0.0 % (0.0-0.19); PLATELET COUNT (AUTO) 261 K/uL (130-400); RED BLOOD CELL COUNT(AUTO) 4.29 MIL/uL (4.00-5.50); RED CELL DISTRIBUTION WIDTH 12.1 % (11.0-15.5); WHITE BLOOD COUNT (AUTO) 6.6 K/uL (4.8-10.8)
[2025-05-02 05:15] LABS: ASPARTATE AMINOTRANSFERASE 34.0 U/L (10-37); CREATININE 0.8 mg/dL (0.5-1.0); GLOMERULAR FILTR. RATE CALC 94.0 mL/min (>90); GLUCOSE,RANDOM 90.0 mg/dL (70-105); SODIUM SERUM 137.0 mmol/L (136-145); TOTAL PROTEIN, SERUM 6.6 g/dL (6.0-8.3); UREA NITROGEN, BLOOD 5.0 mg/dL (7-18)
[2025-05-02] MEDS ORDERED: ENOXAPARIN SODIUM 40 MG/0.4 ML SYRINGE SQ SCH ×2 (09:00→21:00)
--- NOTE | 2025-05-02 10:01 | NUR ---
DCP:HOME Pt currently lives at home with her children. Pt denies having any DME, home health, or provider services. As per pt, she is able to complete all her ADLs independently. PCP is Prateek Ayon and uses [facility] for any RX needs. At DC pt will want to go home and states that family can assist with transportation.
--- NOTE | 2025-05-02 11:28 | CONS ---
GASTROENTEROLOGY CONSULTATION NOTE Date of Consultation: May 02, 2025 Time of Consultation: 11:28 History of Present Illness: [ ] Review of Systems: CONSTITUTIONAL: No malaise or change in sensation of wellbeing. ENMT: No rhinorrhea, otorrhea, sinus pain, ear ache. CARDIOVASCULAR: No angina, palpitations, orthopnea or paroxysmal dyspnea. RESPIRATORY: No SOB. GASTROINTESTINAL: No abdominal pain, nausea, vomiting, diarrhea, hematemesis, melena or change in the patient's habitual bowel movements consistency/number. GENITOURINARY: No dysuria, hematuria or change in bladder continence. MUSCULOSKELETAL: No new muscle pain or decrease in muscular strength. No new joint swelling, redness or tenderness. SKIN: No new rash. Past Medical History: [ ] Past Surgical History: [ ] Past Social History: [ ] Family History: [ ] Coded Allergies: No Known Allergies (Unverified Allergy, Unknown, 04/25/25) Physical Exam: GEN: Awake, alert, oriented in person, time and place, and in no acute distress. HEENT: No sinus tenderness. Tympanic membranes were not examined. No rhinorrhea. Oral pharyngeal mucosa is pink, moist and within normal limits. Neck is supple with no cervical lymphadenopathy, thyromegaly or JVD. CHEST: Inspection, palpation and percussion of the chest were unremarkable. Lung auscultation revealed normal breath sounds bilaterally. CARDIAC: PMI is within normal limits. Heart sounds are regular. Normal S1, S2. No gallop or murmur. ABD: Soft, non-tender and not distended. No peritoneal signs on palpation. No organomegaly. Normal bowel sounds. EXT: No cyanosis or clubbing. No edema. SKIN: Intact. No rashes. JOINTS: No evidence of synovitis or acute arthritis. NEURO: Alert and oriented to name, place and person. Cranial nerve examination is unremarkable. No focal motor deficits. Normal speech. Gait is normal. Strength is normal. Vital Sign (Last 24 Hours) 05/01/25 05/02/25 05/02/25 20:25 06:49 08:00 Temp 98.1 Pulse 71 Resp 16 B/P (MAP) 146/65 Pulse Ox 99 O2 Delivery Room Air O2 Flow Rate 0 FiO2 21 Intake & Output (last 24hrs) 05/01/25 05/01/25 05/02/25 15:00 23:00 07:00 Intake Total 240 ml 120 ml Balance 240 ml 120 ml Laboratory: [ ] Laboratory: Test 05/02/25 04:37 05/01/25 12:48 05/01/25 09:25 05/01/25 07:35 Range/Units White Blood Count 6.6 4.8-10.8 K/uL Red Blood Count 4.29 4.00-5.50 MIL/uL Hemoglobin 12.7 12.0-16.0 g/dL Hematocrit 37.0 36-48 % Mean Corpuscular Volume 86.2 79-99 fL Mean Corpuscular Hemoglobin 29.6 27.0-33.0 pg Mean Corpuscular Hemoglobin Concent 34.3 32.0-36.0 g/dL Red Cell Distribution Width 12.1 11.0-15.5 % Platelet Count 261 130-400 K/uL Mean Platelet Volume 9.1 7.5-10.5 fL Immature Granulocyte % (Auto) 0.3 0-1 % Neutrophils (%) (Auto) 48.3 40.0-77.0 % Lymphocytes (%) (Auto) 41.2 21.0-51.0 % Monocytes (%) (Auto) 7.9 3.0-13.0 % Eosinophils (%) (Auto) 1.7 0.0-8.0 % Basophils (%) (Auto) 0.6 0.0-5.0 % Neutrophils # (Auto) 3.2 1.8-7.7 K/uL Lymphocytes # (Auto) 2.7 1.0-4.8 K/uL Monocytes # (Auto) 0.5 0.1-1.0 K/uL Eosinophils # (Auto) 0.11 0.00-0.70 K/uL Basophils # (Auto) 0.04 0.00-0.20 K/uL Absolute Immature Granulocyte (auto 0.02 0-1 K/uL Nucleated Red Blood Cells 0.0 0.0-0.19 % Sodium Level 137 136-145 mmol/L Potassium Level 3.8 3.5-5.1 mmol/L Chloride Level 104 101-111 mmol/L Carbon Dioxide Level 28 21-32 mmol/L Blood Urea Nitrogen 5 L 7-18 mg/dL Creatinine 0.8 0.5-1.0 mg/dL Glomerular Filtration Rate Calc 94 >90 mL/min Random Glucose 90 70-105 mg/dL Total Calcium 8.5 8.5-10.1 mg/dL Magnesium Level 1.90 1.80-2.40 mg/dL Total Bilirubin 0.6 0.2-1.0 mg/dL Aspartate Amino Transf (AST/SGOT) 34 10-37 U/L Alanine Aminotransferase (ALT/SGPT) 45 12-78 U/L Alkaline Phosphatase 59 50-136 U/L Total Protein 6.6 6.0-8.3 g/dL Albumin 3.1 L 3.5-5.0 g/dL Prothrombin Time 10.6 9.6-11.6 SEC Prothromb Time International Ratio 1.00 0.85-1.15 Activated Partial Thromboplast Time 25.6 L 26.3-35.5 SEC Urine Color LIGHT-YELLOW YELLOW Urine Appearance CLOUDY H CLEAR Urine pH 6.0 5.0-8.0 Urine Specific [place] 1.008 1.001-1.031 Urine Protein NEGATIVE NEGATIVE mg/dL Urine Glucose (UA) NEGATIVE NEGATIVE mg/dL Urine Ketones NEGATIVE NEGATIVE mg/dL Urine Occult Blood NEGATIVE NEGATIVE Urine Nitrate NEGATIVE NEGATIVE Urine Bilirubin NEGATIVE NEGATIVE mg/dL Urine Urobilinogen 0.2 0.2-1.0 mg/dL Urine Leukocyte Esterase NEGATIVE NEGATIVE Akbar/uL Urine RBC 0-1 0-1 /HPF Urine WBC 0-1 0-1 /HPF Urine Squamous Epithelial Cells MANY 0-2 /HPF Urine Bacteria RARE None Seen /HPF Erythrocyte Sedimentation Rate 11 0-20 MM/HR Lactate Dehydrogenase 229 81-234 U/L C-Reactive Protein, Quantitative 10.50 H 0.5-3.0 mg/L Procalcitonin < 0.05 L 0.05-0.5 ng/mL Thyroid Stimulating Hormone (TSH) 4.02 H 0.36-3.74 uIU/mL Test 05/01/25 07:30 Range/Units Direct Bilirubin 0.2 0.0-0.3 mg/dL Lipase 23 16-77 U/L Serum Test, Qualitative NEGATIVE NEGATIVE Current Medications Medications (Trade) Dose Ordered Sig/Annita Route PRN Reason Start Time Stop Time Status Last Admin Dose Admin Acetaminophen (TYLenol 325MG TAB) 650 mg Q6H PRN PO MILD PAIN (1-3) 05/01/25 12:30 05/31/25 12:29 Albuterol (DUOneb) 1 udvial Q6H PRN IH wheezing/ SOB 05/01/25 12:30 05/31/25 12:29 Ceftriaxone Sodium (ROCEphine 1G INJ) 1 gm Q24H IVPB 05/01/25 12:30 05/11/25 12:29 05/01/25 12:57 1 GM Clonazepam (KLONopin 1MG TAB) 1 mg DAILY PRN PO anxiety 05/01/25 13:30 05/31/25 13:29 05/01/25 23:48 1 MG Enoxaparin Sodium (Lovenox) 40 mg DAILY SQ 05/02/25 09:00 05/02/25 08:46 DC Enoxaparin Sodium (Lovenox) 40 mg HS SQ 05/02/25 21:00 06/01/25 08:59 Hydromorphone HCl (DiLAUDid 1MG INJ) 0.5 mg Q6H PRN IVP SEVERE PAIN (7-10) 05/01/25 13:00 05/06/25 12:59 05/02/25 10:11 0.5 MG Morphine Sulfate (morPHINE 2MG SYG) 2 mg Q6H PRN IVP SEVERE PAIN (7-10) 05/01/25 13:00 05/01/25 12:57 DC Multivitamins/ Minerals 10 ml/ Folic Acid 1 mg/ Thiamine HCl 100 mg/Sodium Chloride 1,010 ml @ 80 mls/hr Q24H IV 05/01/25 12:30 05/04/25 01:08 05/01/25 12:59 80 MLS/HR Ondansetron HCl (zoFRAN 4MG INJ) 4 mg Q6H PRN IVP NAUSEA/VOMITING 05/01/25 12:30 05/31/25 12:29 05/01/25 23:40 4 MG Pantoprazole Sodium (PROTonix 40MG INJ) 40 mg Q24H IVP 05/01/25 12:30 05/31/25 12:29 05/01/25 12:57 40 MG Pregabalin (LYRica 25MG) 50 mg BID PO 05/01/25 21:00 05/31/25 20:59 05/02/25 09:56 50 MG Sodium Chloride 1,000 ml @ 0 mls/hr Q0M IV 05/01/25 07:30 05/01/25 12:38 DC 05/01/25 08:21 999 MLS/HR Diagnostics / Radiology: [COPY/PASTE HERE IF NO REPORTS PLEASE DELETE SECTION] Assessment: [ ] Plan: [ ] SURESH MIDDLETON TYPER May 02, 2025 11:28
[2025-05-02] MEDS ORDERED: HYDR-4060 PO (14:47)
--- NOTE | 2025-05-02 15:19 | DS ---
Discharge Summary Hospital Course Summary: The patient is a 44-year-old female with history of achalasia, gastroparesis, GERD/gastritis, obesity, fibromyalgia, anxiety, and poor oral intake who presented with worsening nausea, vomiting, abdominal pain, and recent diarrhea. She reported difficulty keeping medications down, regurgitation of food, and significant lower quadrant pain. She had multiple recent ER visits for similar complaints. CT abdomen/pelvis revealed a distended distal esophagus with narrowing at the GE junction, suggestive of achalasia with hepatomegaly. She was started on IV fluids, IV antibiotics, and symptomatic management. Infectious Disease was consulted for evaluation of diarrhea and GI was consulted for further assessment of her esophageal issues. Her symptoms improved with supportive management, and she was able to tolerate oral fluid intake before discharge. GI recommended outpatient esophageal manometry for further evaluation scheduled at [facility] in [place] on 05/03/2025. To allow the patient to keep this appointment, GI advice discharge once stable. The patient was counseled on the importance of the follow up on dietary precautions and discharged home on pain medications. The plan include continuing a full liquid diet until the procedure and remaining NPO after midnight before manometry, with the exception of essential medications taken with small sip of water. Ditch Rider(s): CONSULTATION REPORT Name: CANDELARIO KERN Acct: [id number] MR: [id number] : 1980 Admit Date: 05/01/25 SURESH MIDDLETON [place] [address] [place] [id number] GASTROENTEROLOGY CONSULTATION NOTE Date of Consultation: May 02, 2025 Time of Consultation: 11:28 History of Present Illness: [ ] Review of Systems: CONSTITUTIONAL: No malaise or change in sensation of wellbeing. ENMT: No rhinorrhea, otorrhea, sinus pain, ear ache. CARDIOVASCULAR: No angina, palpitations, orthopnea or paroxysmal dyspnea. RESPIRATORY: No SOB. GASTROINTESTINAL: No abdominal pain, nausea, vomiting, diarrhea, hematemesis, melena or change in the patient's habitual bowel movements consistency/number. GENITOURINARY: No dysuria, hematuria or change in bladder continence. MUSCULOSKELETAL: No new muscle pain or decrease in muscular strength. No new joint swelling, redness or tenderness. SKIN: No new rash. Past Medical History: [ ] Past Surgical History: [ ] Past Social History: [ ] Family History: [ ] Coded Allergies: No Known Allergies (Unverified Allergy, Unknown, 04/25/25) Physical Exam: GEN: Awake, alert, oriented in person, time and place, and in no acute distress. HEENT: No sinus tenderness. Tympanic membranes were not examined. No rhinorrhea. Oral pharyngeal mucosa is pink, moist and within normal limits. Neck is supple with no cervical lymphadenopathy, thyromegaly or JVD. CHEST: Inspection, palpation and percussion of the chest were unremarkable. Lung auscultation revealed normal breath sounds bilaterally. CARDIAC: PMI is within normal limits. Heart sounds are regular. Normal S1, S2. No gallop or murmur. ABD: Soft, non-tender and not distended. No peritoneal signs on palpation. No organomegaly. Normal bowel sounds. EXT: No cyanosis or clubbing. No edema. SKIN: Intact. No rashes. JOINTS: No evidence of synovitis or acute arthritis. NEURO: Alert and oriented to name, place and person. Cranial nerve examination is unremarkable. No focal motor deficits. Normal speech. Gait is normal. Strength is normal. Vital Sign (Last 24 Hours) 05/01/25 05/02/25 05/02/25 20:25 06:49 08:00 Temp 98.1 Pulse 71 Resp 16 B/P (MAP) 146/65 Pulse Ox 99 O2 Delivery Room Air O2 Flow Rate 0 FiO2 21 Intake & Output (last 24hrs) 05/01/25 05/01/25 05/02/25 15:00 23:00 07:00 Intake Total 240 ml 120 ml Balance 240 ml 120 ml Laboratory: [ ] Laboratory: Test 05/02/25 04:37 05/01/25 12:48 05/01/25 09:25 05/01/25 07:35 Range/Units White Blood Count 6.6 4.8-10.8 K/uL Red Blood Count 4.29 4.00-5.50 MIL/uL Hemoglobin 12.7 12.0-16.0 g/dL Hematocrit 37.0 36-48 % Mean Corpuscular Volume 86.2 79-99 fL Mean Corpuscular Hemoglobin 29.6 27.0-33.0 pg Mean Corpuscular Hemoglobin Concent 34.3 32.0-36.0 g/dL Red Cell Distribution Width 12.1 11.0-15.5 % Platelet Count 261 130-400 K/uL Mean Platelet Volume 9.1 7.5-10.5 fL Immature Granulocyte % (Auto) 0.3 0-1 % Neutrophils (%) (Auto) 48.3 40.0-77.0 % Lymphocytes (%) (Auto) 41.2 21.0-51.0 % Monocytes (%) (Auto) 7.9 3.0-13.0 % Eosinophils (%) (Auto) 1.7 0.0-8.0 % Basophils (%) (Auto) 0.6 0.0-5.0 % Neutrophils # (Auto) 3.2 1.8-7.7 K/uL Lymphocytes # (Auto) 2.7 1.0-4.8 K/uL Monocytes # (Auto) 0.5 0.1-1.0 K/uL Eosinophils # (Auto) 0.11 0.00-0.70 K/uL Basophils # (Auto) 0.04 0.00-0.20 K/uL Absolute Immature Granulocyte (auto 0.02 0-1 K/uL Nucleated Red Blood Cells 0.0 0.0-0.19 % Sodium Level 137 136-145 mmol/L Potassium Level 3.8 3.5-5.1 mmol/L Chloride Level 104 101-111 mmol/L Carbon Dioxide Level 28 21-32 mmol/L Blood Urea Nitrogen 5 L 7-18 mg/dL Creatinine 0.8 0.5-1.0 mg/dL Glomerular Filtration Rate Calc 94 >90 mL/min Random Glucose 90 70-105 mg/dL Total Calcium 8.5 8.5-10.1 mg/dL Magnesium Level 1.90 1.80-2.40 mg/dL Total Bilirubin 0.6 0.2-1.0 mg/dL Aspartate Amino Transf (AST/SGOT) 34 10-37 U/L Alanine Aminotransferase (ALT/SGPT) 45 12-78 U/L Alkaline Phosphatase 59 50-136 U/L Total Protein 6.6 6.0-8.3 g/dL Albumin 3.1 L 3.5-5.0 g/dL Prothrombin Time 10.6 9.6-11.6 SEC Prothromb Time International Ratio 1.00 0.85-1.15 Activated Partial Thromboplast Time 25.6 L 26.3-35.5 SEC Urine Color LIGHT-YELLOW YELLOW Urine Appearance CLOUDY H CLEAR Urine pH 6.0 5.0-8.0 Urine Specific [place] 1.008 1.001-1.031 Urine Protein NEGATIVE NEGATIVE mg/dL Urine Glucose (UA) NEGATIVE NEGATIVE mg/dL Urine Ketones NEGATIVE NEGATIVE mg/dL Urine Occult Blood NEGATIVE NEGATIVE Urine Nitrate NEGATIVE NEGATIVE Urine Bilirubin NEGATIVE NEGATIVE mg/dL Urine Urobilinogen 0.2 0.2-1.0 mg/dL Urine Leukocyte Esterase NEGATIVE NEGATIVE Akbar/uL Urine RBC 0-1 0-1 /HPF Urine WBC 0-1 0-1 /HPF Urine Squamous Epithelial Cells MANY 0-2 /HPF Urine Bacteria RARE None Seen /HPF Erythrocyte Sedimentation Rate 11 0-20 MM/HR Lactate Dehydrogenase 229 81-234 U/L C-Reactive Protein, Quantitative 10.50 H 0.5-3.0 mg/L Procalcitonin < 0.05 L 0.05-0.5 ng/mL Thyroid Stimulating Hormone (TSH) 4.02 H 0.36-3.74 uIU/mL Test 05/01/25 07:30 Range/Units Direct Bilirubin 0.2 0.0-0.3 mg/dL Lipase 23 16-77 U/L Serum Test, Qualitative NEGATIVE NEGATIVE Current Medications Medications (Trade) Dose Ordered Sig/Annita Route PRN Reason Start Time Stop Time Status Last Admin Dose Admin Acetaminophen (TYLenol 325MG TAB) 650 mg Q6H PRN PO MILD PAIN (1-3) 05/01/25 12:30 05/31/25 12:29 Albuterol (DUOneb) 1 udvial Q6H PRN IH wheezing/ SOB 05/01/25 12:30 05/31/25 12:29 Ceftriaxone Sodium (ROCEphine 1G INJ) 1 gm Q24H IVPB 05/01/25 12:30 05/11/25 12:29 05/01/25 12:57 1 GM Clonazepam (KLONopin 1MG TAB) 1 mg DAILY PRN PO anxiety 05/01/25 13:30 05/31/25 13:29 05/01/25 23:48 1 MG Enoxaparin Sodium (Lovenox) 40 mg DAILY SQ 05/02/25 09:00 05/02/25 08:46 DC Enoxaparin Sodium (Lovenox) 40 mg HS SQ 05/02/25 21:00 06/01/25 08:59 Hydromorphone HCl (DiLAUDid 1MG INJ) 0.5 mg Q6H PRN IVP SEVERE PAIN (7-10) 05/01/25 13:00 05/06/25 12:59 05/02/25 10:11 0.5 MG Morphine Sulfate (morPHINE 2MG SYG) 2 mg Q6H PRN IVP SEVERE PAIN (7-10) 05/01/25 13:00 05/01/25 12:57 DC Multivitamins/ Minerals 10 ml/ Folic Acid 1 mg/ Thiamine HCl 100 mg/Sodium Chloride 1,010 ml @ 80 mls/hr Q24H IV 05/01/25 12:30 05/04/25 01:08 05/01/25 12:59 80 MLS/HR Ondansetron HCl (zoFRAN 4MG INJ) 4 mg Q6H PRN IVP NAUSEA/VOMITING 05/01/25 12:30 05/31/25 12:29 05/01/25 23:40 4 MG Pantoprazole Sodium (PROTonix 40MG INJ) 40 mg Q24H IVP 05/01/25 12:30 05/31/25 12:29 05/01/25 12:57 40 MG Pregabalin (LYRica 25MG) 50 mg BID PO 05/01/25 21:00 05/31/25 20:59 05/02/25 09:56 50 MG Sodium Chloride 1,000 ml @ 0 mls/hr Q0M IV 05/01/25 07:30 05/01/25 12:38 DC 05/01/25 08:21 999 MLS/HR Diagnostics / Radiology: [COPY/PASTE HERE IF NO REPORTS PLEASE DELETE SECTION] Assessment: [ ] Plan: [ ] SURESH MIDDLETON [facility] [place] May 02, 2025 11:28 Electronically Signed by: Electronically Co-Signed by: CONSULTATION REPORT Name: CANDELARIO KERN Acct: [id number] MR: [id number] : 1980 Admit Date: 05/01/25 CALI SANDOVAL MD [place] [address] [place] [address] INFECTIOUS DISEASE CONSULTATION DATE OF SERVICE: 05/02/2025. REQUESTING PHYSICIAN: Dr. Elmo Moreno. REASON FOR CONSULTATION: Gastroenteritis. HISTORY OF PRESENT ILLNESS: This is a 44-year-old female with obesity, gastroparesis, and fibromyalgia, presented to the hospital with nausea, vomiting, and diarrhea. The patient also had poor oral intake for about 1 day. No fever or chills. No headache, dizziness, or loss of vision. The patient had imaging done, which shows findings consistent with achalasia. The patient is scheduled to undergo procedure with Gastroenterology tomorrow. PAST MEDICAL HISTORY: 1. Gastroparesis. 2. Fibromyalgia. 3. Obesity. 4. GERD PAST SURGICAL HISTORY: 1. EGD. 2. Cholecystectomy. 3. section. ALLERGIES: No known drug allergies. CURRENT MEDICATIONS: 1. Lyrica. 2. Ceftriaxone. 3. Protonix. 4. Zofran. SOCIAL HISTORY: Denied alcohol, tobacco, or illicit drug use. FAMILY HISTORY: Noncontributory. REVIEW OF SYSTEMS: Greater than 10-systems were reviewed and negative except as documented above. PHYSICAL EXAMINATION: GENERAL: Young female. Awake, not in distress. CENTRAL NERVOUS SYSTEM: Awake, alert, oriented x 3. No focal deficits. SKIN: No rashes, no itchiness. LYMPHATIC: No peripheral lymphadenopathy. BACK: No deformity or pressure ulcer. HEMATOLOGIC: No bleeding or petechial lesions seen. MUSCULOSKELETAL: No joint swelling. No erythema. No tenderness. VASCULAR: No ischemia or gangrene of the extremities. LABORATORY DATA: Sodium 137, potassium 3.8, BUN 5, creatinine 0.8. WBC 6.6, hemoglobin 12.7, platelets 261. RADIOLOGY: CT of the abdomen shows distended esophagus. ASSESSMENT: A 44-year-old female who presents with nausea or vomiting, abdominal pain. Current problem include: 1. Gastroparesis. 2. Infection of gastroenteritis. 3. Dehydration. 4. Abdominal pain. 5. Obesity. PLAN: 1. No antibiotic needed at this time. 2. Continue IV fluid. 3. Continue antiemetic. 4. Continue pain management. 5. Continue nutrition as above. 6. Monitor electrolytes. 7. The patient will be followed up closely. Thank you for allowing me to participate in the care of this patient. TID: [id number] RECEIPT: [id number] Electronically Signed by: Electronically Co-Signed by: Procedure(s): [facility] [address] [place], [place] [id number] IMAGING REPORT Signed PATIENT: CANDELARIO KERN MR#: [id number] : 1980 SEX: F AGE: 44 LOCATION: [facility] ORDER 0 STATUS: REG ER REPORT#: [id number] SERVICE 9 REASON: abd pain, hx of gastroparesis ORDERING PHYSICIAN: EDDIE VEGA MD PROCEDURE: ABD PEL W - CT ABDOMEN/PELVIS W/CONTRAST EXAM: CT Abdomen and Pelvis with IV contrast CLINICAL HISTORY: abd pain, hx of gastroparesis TECHNIQUE: Axial computed tomography images of the abdomen and pelvis with intravenous contrast. CONTRAST: with intravenous contrast. COMPARISON: Study dated 04/25/25. FINDINGS: LUNG BASES: The lung bases appear clear. No pleural effusions are seen. LIVER: The liver is enlarged in size. The right hepatic lobe measures up to 17.7 cm. GALLBLADDER AND BILE DUCTS: Post-cholecystectomy status. PANCREAS: Unremarkable. SPLEEN: Unremarkable. ADRENAL GLANDS: Unremarkable. KIDNEYS, URETERS, AND BLADDER: The kidneys appear within normal limits. There is no hydronephrosis or hydroureter. No urinary calculi are seen. STOMACH AND BOWEL: Unremarkable appearance of the stomach and bowel. No evidence of bowel obstruction. No evidence suggesting enteritis or colitis. The visualized distal esophagus is distended (diameter 3.2 cm) with fluid with abrupt narrowing at the gastroesophageal junction. Findings may reflect achalasia; recommend an esophagram or direct visualization (EGD) for further evaluation. (No change compared to the previous study). APPENDIX: No evidence of acute appendicitis on CT examination. PERITONEUM: No free fluid. No free air. LYMPH NODES: No lymphadenopathy is evident. REPRODUCTIVE: Intrauterine device in place. VASCULATURE: No evidence of abdominal aortic aneurysm. BONES: No aggressive appearing osseous lesion. No acute osseous pathology evident. IMPRESSION: 1. Distended distal esophagus (3.2 cm diameter) with abrupt narrowing at gastroesophageal junction, possibly reflecting achalasia. Recommend esophagram or EGD for further evaluation. 2. Hepatomegaly with right hepatic lobe measuring up to 17.7 cm. 3. No acute findings. /[place] DICTATED BY: TOSHIA FERRARA Jr., MD DATE: 05/01/25 1232 ELECTRONICALLY SIGNED BY: TOSHIA FERRARA Jr., MD DATE: 05/01/25 1232 Assessment/Plan: ASSESSMENT: Infectious gastroenteritis with multiple episodes of diarrhea, POA Recent diagnosis of achalasia with nausea, vomiting and regurgitation of food, POA Dehydration, POA Concern for gastroparesis, POA History of GERD, POA History of gastritis, POA Obesity, POA History of fibromyalgia, POA History of anxiety, POA Hx of chronic benzodiazepine use as outpatient with Clonazepam, POA Discharge Instructions: Continue a full liquid diet only today, avoid all solid foods until evaluation. Liquids allowed only until midnight, after midnight nothing by mouth except essential medications with a small sip of water. Takes small, frequent sips and stay upright for 1-2 hours after intake avoid lying down right after drinking. Avoid carbonated or gas producing liquids Keep your GI clinic appointment tomorrow for esophageal manometry, and seek urgent care for chest pain, inability to swallow liquids, persistent vomiting, dehydration, or worsening symptoms. Take hydrocodone/acetaminophen 1 tab p.o. for pain every 6 hours as needed. Take pantoprazole 40 mg twice daily. Follow up with outpatient GI clinic at [facility] on 05/03/2025 for esophageal manometry and further evaluation. Follow up with PCP in 1-2 weeks. Home Medications: Active Scripts Hydrocodone/Acetaminophen (Hydrocodon-Acetaminophen 5-325) 5 Mg-325 Mg Tablet, 1 TAB PO Q6HPRN PRN for pain for 3 Days, #10 TAB 0 Refills Prov:DIANNE EASTON MD 05/02/25 Pantoprazole Sodium (Protonix) 40 Mg Tablet.dr, 40 MG PO BIDAC, #40 TAB Prov:SAMMY DISLA 04/25/25 New Medications: Hydrocodone/Acetaminophen (Hydrocodon-Acetaminophen 5-325) 5 Mg-325 Mg Tablet 1 TAB PO Q6HPRN PRN for pain for 3 Days, #10 TAB 0 Refills Time spent arranging discharge: 1-30 minutes ATTESTATION BY PHYSICIAN I have seen and examined the patient. I reviewed the documentation, medical decision making, and treatment plan as noted by the resident physician above. I agree with the findings and plan of care. DIANNE EASTON MD, ADIL SHAH QUADRI MD May 02, 2025 15:19
--- NOTE | 2025-05-02 15:59 | NUR ---
SPOKE TO PATIENT AT LENGTH. PATIENT HAS OUT PATENT PRE AUTHORIZED PROCEDURE AT [facility] TOMORROW . WANTS TO BE TRANSFERRED TO [facility] A HOSPITAL TO HOSPITAL TRANSFER' EXPLAINED THAT IS NOT POSSIBLE . PT IS STABLE. PATIENT IS ABLE TO BE DISCHARGED AND FOLLOW UP TO GO TO PROCEDURE TOMORROW . PATIENT WAS ADVISED THAT IF SHE HAD PAIN WARRANTING AN EMERGENCY TO PRESENT HERSELF AT EMERGENCY ROOM. THEY WILL BE ABLE TO ADMIT HER AN OBSERVATION PATIENT AND DO HER PROCEDURE. OTHERWISE, JUST SHOW UP WHERE/WHEN SHE WAS INSTRUCTED FOR HER PROCEDURE
[2025-05-02] MEDS ORDERED: COMPOUND PO MISCELLANEOUS 1 EACH MISC MISC PRN (16:00)
[2025-05-02] MEDS ORDERED: PHARMACY COMMUNICATION MISC SCH (16:00)
[2025-05-02] MEDS: LIDO 2% VISC 30ML+MAG/AL/SIMETH 30ML+DICYCLOMINE 20MG 10ML PO ONE (16:33)
--- NOTE | 2025-05-02 17:45 | NUR ---
PT DC'D HOME PER MD ORDER. PT WAS INSTRUCTED TO F/U WITH PCP IN 3-5 DAYS AND TO KEEP CARLOS APPT AT [facility] FOR HER APPT 05/03/25. PT STATED UNDERSTANDING. RX SENT TO PT PHARMACY, PT VERIFIES GETTING MEDS TO PHARMACY. PT WAS ALSO PROVIDED WITH EDUCATIONAL INFORMATION IN HER DC PACKET. PT IV REMOVED TIP INTACT. ALL BELONGING WERE TAKEN FROM THE ROOM.
--- NOTE | 2025-05-03 11:55 | CONS ---
INFECTIOUS DISEASE CONSULTATION DATE OF SERVICE: 05/02/2025. REQUESTING PHYSICIAN: Dr. Elmo Moreno. REASON FOR CONSULTATION: Gastroenteritis. HISTORY OF PRESENT ILLNESS: This is a 44-year-old female with obesity, gastroparesis, and fibromyalgia, presented to the hospital with nausea, vomiting, and diarrhea. The patient also had poor oral intake for about 1 day. No fever or chills. No headache, dizziness, or loss of vision. The patient had imaging done, which shows findings consistent with achalasia. The patient is scheduled to undergo procedure with Gastroenterology tomorrow. PAST MEDICAL HISTORY: 1. Gastroparesis. 2. Fibromyalgia. 3. Obesity. 4. GERD PAST SURGICAL HISTORY: 1. EGD. 2. Cholecystectomy. 3. section. ALLERGIES: No known drug allergies. CURRENT MEDICATIONS: 1. Lyrica. 2. Ceftriaxone. 3. Protonix. 4. Zofran. SOCIAL HISTORY: Denied alcohol, tobacco, or illicit drug use. FAMILY HISTORY: Noncontributory. REVIEW OF SYSTEMS: Greater than 10-systems were reviewed and negative except as documented above. PHYSICAL EXAMINATION: GENERAL: Young female. Awake, not in distress. CENTRAL NERVOUS SYSTEM: Awake, alert, oriented x 3. No focal deficits. SKIN: No rashes, no itchiness. LYMPHATIC: No peripheral lymphadenopathy. BACK: No deformity or pressure ulcer. HEMATOLOGIC: No bleeding or petechial lesions seen. MUSCULOSKELETAL: No joint swelling. No erythema. No tenderness. VASCULAR: No ischemia or gangrene of the extremities. LABORATORY DATA: Sodium 137, potassium 3.8, BUN 5, creatinine 0.8. WBC 6.6, hemoglobin 12.7, platelets 261. RADIOLOGY: CT of the abdomen shows distended esophagus. ASSESSMENT: A 44-year-old female who presents with nausea or vomiting, abdominal pain. Current problem include: 1. Gastroparesis. 2. Infection of gastroenteritis. 3. Dehydration. 4. Abdominal pain. 5. Obesity. PLAN: 1. No antibiotic needed at this time. 2. Continue IV fluid. 3. Continue antiemetic. 4. Continue pain management. 5. Continue nutrition as above. 6. Monitor electrolytes. 7. The patient will be followed up closely. Thank you for allowing me to participate in the care of this patient. TID: [id number] RECEIPT: [id number]
== END 2025-05-02 17:42 | disposition home or self-care (01) ==
LOC: EDH 07:16 → EDHIP 07:17 → INTOOBSV 07:17 → 1MS 15:14
PROVIDERS: ADMIT Internal Medicine; ATTEND Internal Medicine
DX: A09 Infectious gastroenteritis and colitis, unspecified (principal); E86.0 Dehydration; K22.0 Achalasia of cardia; E66.9 Obesity, unspecified; K21.9 Gastro-esophageal reflux disease without esophagitis; K31.84 Gastroparesis; R14.0 Abdominal distension (gaseous); F41.9 Anxiety disorder, unspecified; Z87.891 Personal history of nicotine dependence; Z79.899 Other long term (current) drug therapy; Z68.33 Body mass index [BMI] 33.0-33.9, adult
CPT/HCPCS: 96376 ×2; 96365; 96366 ×2; 96375; 96368; 99285; 84443; 80076; 83615; 80048; 84703; 83690; 85025 ×2; 85610; 85730; 85651; 86038; 86140; 81001; 36415 ×2; 74177; 94664; 84145; 83735; 80053; J1171 ×3; J7030 ×2; J0696 ×2; J3411 ×2; J2405 ×3; J2270; J3490 ×2; J2470 ×2; Q9967; G0378 ×17; 86215; 86235; 96374